=== PATIENT | male | born 1970 | race Caucasian/White ===

== ENCOUNTER 2017-04-07 10:40 | Emergency (ER) | payer SELFPAY ==
[~2017-04-07] VITALS: Ht 182.9 cm; Wt 97.7 kg
[2017-04-07 10:45] VITALS: BP 170/126
== END 2017-04-07 12:51 | disposition left against medical advice (07) ==
LOC: EME 10:40
DX: M54.5 Low back pain (principal); Z53.21 Procedure and treatment not carried out due to patient leaving prior to being seen by health care provider